=== PATIENT | female | born 1985 | race Caucasian/White ===

== ENCOUNTER → 2017-03-24 | Outpatient (CLI) | payer OTHER ==
[2017-03-24 13:45] LABS: BASO % 0.5 %; BASO ABS # 0.04 K/uL (0-0.2); COMPLETE YES; EOS % 1.8 %; HEMATOCRIT 38.5 % (37-47); IG% 0.1 %; LYMPH ABS # 1.75 K/uL (1.2-3.4); MEAN CELL VOLUME 85.6 fL (80-100); MEAN CORPUSCULAR HEMOGLOBIN 26.7 pg (25-34); MEAN CORPUSCULAR HGB CONC 31.2 g/dl (32-36); MONO % 6.8 %; NEUT % 68.8 %; PLATELET COUNT 345 K/uL (130-400); WHITE BLOOD COUNT 7.97 K/uL (4.8-10.8)
[2017-03-24 13:56] LABS: ESTIMATED AVERAGE GLUCOSE 140 mg/dl; HA1C FLAG Normal (Normal)
[2017-03-24 15:03] LABS: LYME DISEASE AB IGG NEG (NEG); LYME DISEASE AB IGM NEG (NEG)
[2017-03-24 15:25] LABS: ALT/SGPT 25 U/L (12-78); AST/SGOT 16 U/L (15-37); BLOOD UREA NITROGEN 13 mg/dl (7-18); BUN/CREATININE RATIO 12.8 (10-20); CALCIUM 8.9 mg/dl (8.5-10.1); CARBON DIOXIDE 23 mmol/L (21-32); CHLORIDE 109 mmol/L (98-107); GLUCOSE 125 mg/dl (70-99); POTASSIUM 3.9 mmol/L (3.5-5.1); SODIUM 140 mmol/L (136-145)
[2017-03-24 15:34] LABS: ALB/GLOB RATIO 0.9 (0.9-2); ALKALINE PHOSPHATASE 95 U/L (45-117); TOTAL IRON BINDING CAPACITY 373 mcg/dl (250-450)
[2017-03-25 01:48] LABS: RAPID PLASMA REAGIN NONREACTIVE (NONREACT)
[2017-03-27 05:34] LABS: PARVOVIRUS IgG INDEX 1.6 (<0.9); PARVOVIRUS IgM INDEX 0.2 (<0.9)
[2017-03-27 13:28] LABS: EBV EARLY ANTIGEN AB <9.00 U/ML
[2017-03-30 03:05] LABS: ANTI-CENTROMERE AB <1.0 NEG AI (<1.0 NEG); ANTI-SS-A <1.0 NEG AI (<1.0 NEG); ANTI-SS-B <1.0 NEG AI (<1.0 NEG); DNA ds CRITHIDIA NEGATIVE (NEGATIVE); MICROSOMAL AB 49 IU/ML (<9); Sm Antibody <1.0 NEG AI (<1.0 NEG)
[2017-04-04 18:14] LABS: ACETYLCHOLINE RECEP MODULATING 23; ACETYLCHOLINE RECEPT BLOCKING <15 % inhibit (<15); RECEPTOR BINDING AB <0.30 nmol/L (<=0.30)
== END | disposition home or self-care (01) ==
LOC: C.LABBC 09:29
PROVIDERS: ATTEND Psychiatry & Neurology Neurology
DX: E07.9 Disorder of thyroid, unspecified (principal); R73.03 Prediabetes; M79.1 Myalgia; R53.82 Chronic fatigue, unspecified; H81.10 Benign paroxysmal vertigo, unspecified ear; M25.50 Pain in unspecified joint; G57.11 Meralgia paresthetica, right lower limb